=== PATIENT | male | born 1975 | race Caucasian/White ===

== ENCOUNTER 2021-11-16 14:22 | Emergency (ER) | payer OTHER ==
[2021-11-16 15:59] LABS: HEMOGLOBIN 14.2 gm/dl (14.0-17.5); RED BLOOD COUNT 4.96 M/UL (4.20-5.50); WHITE BLOOD COUNT 6.8 K/UL (4.5-11.0)
[2021-11-16 16:22] LABS: BUN/CREATININE RATIO 12 (0-10)
[2021-11-16] MEDS ORDERED: IBUPROFEN800 MG PO (18:09)
[2021-11-16] MEDS ORDERED: COLACE100 MG PO (18:09)
== END 2021-11-16 18:45 | disposition home or self-care (01) ==
LOC: ER1 14:22
PROVIDERS: Physician Assistant
DX: K40.90 Unilateral inguinal hernia, without obstruction or gangrene, not specified as recurrent (principal); E78.5 Hyperlipidemia, unspecified; Z88.0 Allergy status to penicillin; Z79.899 Other long term (current) drug therapy
CPT/HCPCS: 80053; 81001; 83690; 85025; 96374; 96375; 99284; J1885; J2405; Q9967